=== PATIENT | female | born 1965 | race Caucasian/White ===

== ENCOUNTER 2022-11-05 10:11 | Outpatient (CLI) | payer BC, SELFPAY ==
--- NOTE | ~2022-11-05 | US_ITS ---
EXAMINATION: US thyroid DATE: 11/05/2022 11:05 INDICATION: Nontoxic single thyroid nodule. TECHNIQUE: Multiple ultrasound images of the thyroid were obtained. COMPARISON: Ultrasound 10/11/2022 FINDINGS: The right thyroid lobe is absent. The left thyroid lobe measures 4.0 x 1.3 x 1.2 cm. In the left thy roid lobe, there is a 5 mm solid, hypoechoic, wider than tall nodule with smooth margin without echog enic foci (TI-RADS TR4). There are normal left internal jugular chain lymph nodes measuring up to 1.5 x 0.9 x 0.9 cm. IMPRESSION: 1. Small thyroid nodule, likely not clinically significant. After discussion with the patient, the bi opsy was canceled. 2. Normal sized left internal jugular chain lymph nodes. Reviewed, dictated and finalized at location A. IMPRESSION: 1. Small thyroid nodule, likely not clinically significant. After discussion wi th the patient, the biopsy was canceled. 2. Normal sized left internal jugular chain lymph nodes.
== END 2022-11-05 10:12 | disposition home or self-care (01) ==
PROVIDERS: Visit Provider Internal Medicine Endocrinology, Diabetes & Metabolism
DX: E04.1 Nontoxic single thyroid nodule (principal)
CPT/HCPCS: 76536

== ENCOUNTER 2024-04-29 10:18 | Outpatient (CLI) | payer BC, SELFPAY ==
--- NOTE | ~2024-04-29 | XR_ITS ---
EXAMINATION: XR abdomen/kub 1V DATE: 04/29/2024 10:34 INDICATION: Calculus of kidney. Hematuria. TECHNIQUE: A supine view of the abdomen on 2 radiographs was obtained. COMPARISON: None. FINDINGS: There is a moderate volume of stool in the colon. There are no dilated loops of bowel. Ther e is a 3 mm calcification in right pelvis. There is a 3 mm calcification in left pelvis. IMPRESSION: 1. Bilateral pelvic calcifications, most likely phleboliths. Distal ureteral stone cannot be excluded . Reviewed, dictated and finalized at location A. IMPRESSION: 1. Bilateral pelvic calcifications, most likely phleboliths. Distal ureteral st one cannot be excluded.
== END 2024-04-29 10:19 | disposition home or self-care (01) ==
PROVIDERS: PCP Urology; Visit Provider Urology
DX: N20.0 Calculus of kidney (principal)
CPT/HCPCS: 74018